=== PATIENT | male | born 1985 | race African-American/Black ===

== ENCOUNTER 2017-08-23 20:38 | Emergency (ER) | payer SELFPAY ==
[2017-08-23] MEDS ORDERED: THIAMINE 100 MG in IV DEXTROSE 5% 50 ML IV (21:00)
[2017-08-23 21:17] LABS: BARBITURATES NEG (NEG); BENZODIAZEPINES NEG (NEG); CANNABINOIDS POS (NEG); COCAINE POS (NEG); METHADONE NEG (NEG); OPIATES NEG (NEG); PHENCYCLIDINE POS (NEG)
[2017-08-23 21:18] LABS: AMPHETAMINE/METHAMPHETAMINE NEG (NEG); ETHANOL, URINE POS (NEG)
[2017-08-23] MEDS: IV NORMAL SALINE 1000ML BAG 1,000 ML IV (21:27)
[2017-08-23] MEDS: THIAMINE 100 MG TABLET. PO (21:27)
[2017-08-23 21:29] LABS: BASO # 0.1 x10^3/uL (0.0-0.2); BASO % 1 % (0-3); EOS % 0 % (0-3); HEMATOCRIT 49.3 % (39.0-53.0); HEMOGLOBIN 16.6 g/dL (13.0-17.5); LYMPH # 1.5 x10^3/uL (1.0-4.8); LYMPH % 15 % (24-48); MEAN CORPUSCULAR HEMOGLOBIN 35 pg (25-35); MEAN CORPUSCULAR HGB CONC 34 g/dL (31-37); MEAN CORPUSCULAR VOLUME 103 fL (79-100); MONO # 0.6 x10^3/uL (0.0-1.1); MONO % 6 % (0-9); NEUT # 7.9 x10^3uL (1.8-7.7); NEUT % 79 % (31-73); PLATELET COUNT 276 x10^3/uL (140-400); RED BLOOD COUNT 4.79 x10^6/uL (4.30-5.70); RED CELL DISTRIBUTION WIDTH 12.4 % (11.5-14.5)
[2017-08-23 21:30] LABS: ADD MAN DIFF? YES
[2017-08-23 21:37] LABS: ANION GAP 14 (6-14); BLOOD UREA NITROGEN 10 mg/dL (8-26); CALCIUM 8.9 mg/dL (8.5-10.1); CARBON DIOXIDE 24 mmol/L (21-32); CHLORIDE 108 mmol/L (98-107); CREATININE 0.9 mg/dL (0.7-1.3); GFR 116.9; GLUCOSE 78 mg/dL (70-99); MAGNESIUM 2.2 mg/dL (1.8-2.4); SODIUM 146 mmol/L (136-145)
[2017-08-23 21:39] LABS: ETHANOL 118 mg/dL (0-10)
[2017-08-23 21:57] LABS: % BANDS 1 % (0-9); % LYMPHS 23 % (24-48); % MONOS 8 % (0-10); % SEGS 68 % (35-66); PLT ESTIMATE ADEQUATE (ADEQUATE)
== END 2017-08-24 04:56 | disposition home or self-care (01) ==
LOC: ER 08-24 04:56
DX: F19.10 Other psychoactive substance abuse, uncomplicated (principal); F10.10 Alcohol abuse, uncomplicated; E86.0 Dehydration; S60.222A Contusion of left hand, initial encounter; X58.XXXA Exposure to other specified factors, initial encounter; Y93.89 Activity, other specified; Y99.8 Other external cause status; Y92.89 Other specified places as the place of occurrence of the external cause
CPT/HCPCS: 36415; 80048; 80307; 83735; 85007; 85025; 93005; 96360; 99285-25; G0480; J7030

== ENCOUNTER 2018-01-28 00:12 | Emergency (ER) | payer SELFPAY ==
[2018-01-28] MEDS: ACETAMINOPHEN 500 MG TABLET PO (00:49)
[2018-01-28] MEDS: AMOXICILLIN 250 MG CAPSULE. PO (00:54)
== END 2018-01-28 00:56 | disposition home or self-care (01) ==
LOC: ER 00:12
DX: K04.7 Periapical abscess without sinus (principal); K01.1 Impacted teeth; F17.210 Nicotine dependence, cigarettes, uncomplicated
CPT/HCPCS: 99283